=== PATIENT | male | born 1965 | race Caucasian/White ===

== ENCOUNTER 2017-11-14 08:49 | Day surgery (SDC) | payer BC ==
[2017-11-14] MEDS: NS 1,000 ML IV (09:00)
[2017-11-14] MEDS ORDERED: PROPOFOL 200 MG/20 ML VIAL As Ordered ×2 (09:49→10:00)
== END 2017-11-14 10:46 | disposition home or self-care (01) ==
LOC: M OPP 08:49
DX: Z12.11 Encounter for screening for malignant neoplasm of colon (principal); K64.0 First degree hemorrhoids; R06.83 Snoring; G47.30 Sleep apnea, unspecified; G47.8 Other sleep disorders; E66.9 Obesity, unspecified
CPT/HCPCS: G0121

== ENCOUNTER → 2018-02-07 | Outpatient (REF) | payer BC ==
[2018-02-07 21:44] LABS: APPEARANCE, URINE CLEAR (CLEAR); BACTERIA, URINE AUTO NEGATIVE (NEGATIVE); BILIRUBIN, URINE AUTO NEGATIVE (NEGATIVE); BLOOD, URINE BLOOD 1+ (NEGATIVE); COLOR, URINE STRAW (YELLOW); GLUCOSE, URINE (UA) AUTO NEGATIVE (NEGATIVE); KETONE, URINE AUTO NEGATIVE (NEGATIVE); LEUKOCYTE ESTERASE, URINE AUTO NEGATIVE (NEGATIVE); NITRITE, URINE AUTO NEGATIVE (NEGATIVE); PROTEIN, URINE AUTO NEGATIVE (NEGATIVE); RBC, URINE AUTO 0 /HPF (0-3); SPECIFIC GRAVITY URINE AUTO 1.003 (1.002-1.035); SQUAMOUS EPITHELIAL CELL UR AU 0 /HPF (0-6); UROBILINOGEN, URINE AUTO 0.2 mg/dL (0.0-2.0); WBC, URINE AUTO 0 /HPF (0-3)
== END ==
LOC: M LAB REF 02-08 15:55
DX: N39.0 Urinary tract infection, site not specified (principal)

== ENCOUNTER → 2022-09-16 | Outpatient (REF) | payer BC | LOC: M LAB REF 11:51 | PROVIDERS: ATTEND Internal Medicine | DX: R53.83 Other fatigue (principal); N52.9 Male erectile dysfunction, unspecified ==